=== PATIENT | male | born 1965 | race Caucasian/White ===

== ENCOUNTER 2019-09-15 08:30 | Day surgery (SDC) | payer BC ==
[2019-09-14 16:02] VITALS: BMI 32.1
[2019-09-15 11:33] VITALS: TEMP 97.8
[2019-09-15 13:24] VITALS: BP 121/76; PULSE 76
--- NOTE | 2019-09-18 16:45 | PATH ---
Surgical Pathology Report Patient Name: ALEX LAMBERT [facility]. Rec. #: [id number] /Age/Gender: 1965 (Age: 53) / M Account: [id number] Location: [facility]-ENDOSCOPY Taken: 09/15/2019 Received: 09/15/2019 Reported: 09/18/2019 Physicians: Jagdeep Cortez M.D. Specimen(s) Received A: DESCENDING COLON POLYP B: TRANSVERSE COLON POLYP C: HEPATIC FLEXURE POLYP Clinical History Colon cancer screening Postoperative diagnosis: Colon polyps, melanosis coli Final Diagnosis A. DESCENDING COLON POLYPS, POLYPECTOMY: TUBULAR ADENOMA, MULTIPLE FRAGMENTS. SEPARATE FRAGMENTS OF COLONIC MUCOSA WITH INCREASED PIGMENTED MACROPHAGES IN THE LAMINA PROPRIA, CONSISTENT WITH MELANOSIS COLI. B. TRANSVERSE COLON POLYP, BIOPSY: COLONIC MUCOSA WITH SURFACE HYPERPLASTIC CHANGE AND MELANOSIS COLI. C. HEPATIC FLEXURE POLYP, POLYPECTOMY: TUBULAR ADENOMA. Electronically Signed Luz Marina Wilhelm M.D. Gross Description A. Received in formalin, labeled "biopsy descending colon" are 4 lundberg, irregular portions of soft tissue ranging from 0.1-0.4 cm. in greatest dimension. The specimens are submitted in toto in one cassette. B. Received in formalin, labeled "transverse colon polyp" is a lundberg, irregular portion of soft tissue measuring 0.5 cm. in greatest dimension. The specimen is submitted in toto in one cassette. C. Received in formalin, labeled "biopsy hepatic flexure polyp" are 2 lundberg, irregular portions of soft tissue averaging 0.2 cm. in greatest dimension. The specimens are submitted in toto in one cassette. /09/15/2019 saudi09/15/2019
== END 2019-09-15 11:50 | disposition home or self-care (01) ==
LOC: JASU-ENDO 08:30
PROVIDERS: ATTEND Internal Medicine Gastroenterology
PROC: 0DBM8ZX Excision of Descending Colon, Via Natural or Artificial Opening Endoscopic, Diagnostic (ICD-10-PCS; 2019-09-15)
PROC: 0DBL8ZX Excision of Transverse Colon, Via Natural or Artificial Opening Endoscopic, Diagnostic (ICD-10-PCS; principal; 2019-09-15 09:30)
DX: Z12.11 Encounter for screening for malignant neoplasm of colon (principal); Z83.71 Family history of colonic polyps; D12.4 Benign neoplasm of descending colon; D12.3 Benign neoplasm of transverse colon; K63.89 Other specified diseases of intestine; K64.8 Other hemorrhoids
CPT/HCPCS: 88305-TC